=== PATIENT | female | born 1955 | race Caucasian/White ===

== ENCOUNTER → 2017-07-17 | Outpatient (CLI) | payer OTHER | LOC: RAD 02:18 | DX: Z12.31 Encounter for screening mammogram for malignant neoplasm of breast (principal) ==

== ENCOUNTER → 2018-08-05 | Outpatient (CLI) | payer OTHER | LOC: RAD 01:09 | DX: Z12.31 Encounter for screening mammogram for malignant neoplasm of breast (principal) ==

== ENCOUNTER → 2019-08-29 | Outpatient (CLI) | payer OTHER | LOC: RAD 08:34 | DX: Z12.31 Encounter for screening mammogram for malignant neoplasm of breast (principal) ==

== ENCOUNTER → 2019-08-31 | Outpatient (CLI) | payer OTHER | LOC: RAD 12:20 | DX: R92.1 Mammographic calcification found on diagnostic imaging of breast (principal) ==

== ENCOUNTER → 2019-09-02 | Outpatient (CLI) | payer OTHER ==
--- NOTE | 2019-09-08 13:08 | PATH ---
[facility] [place] [address] PATHOLOGY RPT PROCEDURE Name: MEAGHAN BATEMAN Room #: REG [facility] M.R.#: [id number] Admission: 09/02/19 Date of : 59 Discharge: Report #: [id number] Path Case #: [id number] LCA Accession Number: [id number] . 01 Material submitted: . breast - RIGHT ANTERIOR MEDIAL BREAST CALCIFICATIONS. Modifiers: right, anterior, medial . 01 Clinical history: . Right breast calcifications . 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 (IUV:managing cognitive engineer; 09/05/2019) MBR 09/05/2019 1326 Local . 02 Comment: ER and OK are ordered on block A1 and the results of this will be reported in an addendum to follow. . Dr.Joanne Shereen Marx has seen a operations support representative slide and concurs with my diagnosis. . Findings of this case are telephoned to miss Huang in our breast center at 11:05 a.m. on 09/05/2019. . (IUV:managing cognitive engineer; 09/05/2019) . 02 Addendum: . Special studies report received from [facility], [address] [place] [address], [address], [place], [address], on case [id number], labeled with their number [id number], dated 09/07/2019. . Breast/Prognostic Marker Analysis . Specimen Site: Right Breast, Anterior Medial (Biopsy), Ductal Carcinoma In Situ Specimen ID #: [id number] . ER (Estrogen Receptor) Present/Positive Percent: 95.00% Analysis: Manual Comments: Staining Intensity: Strong. [address] [address] PATHOLOGY RPT PROCEDURE Name: MEAGHAN BATEMAN Room #: REG [facility].#: [id number] Admission: 09/02/19 Date of : 59 Discharge: Report #: [id number] Path Case #: [id number] . OK (Progesterone Receptor) Present/Positive Percent: 60.00% Analysis: Manual Comments: Staining Intensity: Moderate-strong. . Time to Fixation (Cold Ischemic Time): 2 minutes Duration of Fixation: 11 hours 3 minutes Type of Fixative: 10% Neutral Buffered Formalin . Comments: Prognostic groupings are reported only for invasive primary breast carcinomas. Please disregard the reference ranges to the right. . Whole slide image capture is performed using [employer] ([employer]) platform. Image analysis, if ordered, is performed using [email or web address] software. . at [facility] Rey Ribera M.D. Pathologist . . Methodology A rabbit monoclonal antibody (clone SP1) that recognized the Estrogen Receptor is used to perform immunohistochemistry on routinely fixed (formalin) paraffin embedded tissue on the Clarita Benchmark. The specimen is processed using a secondary antibody-HRP conjugate detection system. The percentage of stained tumor nuclei is determined either manually or by image analysis. This test is intended for in vitro diagnostic use. This test is used for clinical purposes. . A rabbit monoclonal antibody (clone 1E2) that recognized the Progesterone Receptor is used to perform immunohistochemistry on routinely fixed (formalin) paraffin embedded tissue on the Medium Benchmark. The specimen is processed using a secondary antibody-HRP conjugate detection system. The percentage of stained tumor nuclei is determined either manually or by image analysis. This test is intended for in vitro diagnostic use. This test is used for clinical purposes. . Intended Use: This antibody is intended for in vitro diagnostic (IVD) use. Estrogen Receptor (ER) (SP1) is a rabbit monoclonal antibody (IgG) that is intended for the qualitative detection of estrogen receptor (ER) antigen in sections of formalin-fixed, paraffin-embedded tissue. ER is a rabbit monoclonal antibody that recognizes human estrogen receptor alpha. [address] [address] PATHOLOGY RPT PROCEDURE Name: MEAGHAN BATEMAN Room #: REG [facility] M.R.#: [id number] Admission: 09/02/19 Date of : 59 Discharge: Report #: [id number] Path Case #: [id number] . This antibody is intended for in vitro diagnostic (IVD) use. Progesterone Receptor (OK) (1E2) is a rabbit monoclonal antibody (IgG) that is intended for the qualitative detection of progesterone receptor (OK) antigen in sections of formalin fixed, paraffin embedded tissue. OK is a rabbit monoclonal antibody that recognizes the A and B forms of the human progesterone receptor. . Disclaimer: This Test was performed by [facility]. at [address] [place] [address], [address]. . [facility] is a business unit of [facility]. a wholly-owned subsidiary of [employer]. . This assay has not been validated on decalcified tissues. Results should be interpreted with caution if this specimen was decalcified given the likelihood of false negativity on decalcified specimens. . Any image(s) that accompany this report is/are a operations support representative image(s) only and should not be used to render a diagnosis. . This interpretation is contingent on the specimen and the clinical information received. . For any special tests/stains performed, known positive cells or tissues are tested with each marker and examined to ensure positivity. Positive and negative internal controls, if present, react appropriately. . This analysis is an adjunct to the evaluation of the referring physician and does not represent a final diagnosis. . The immunohistochemistry tests performed at [facility]. were validated on tissue fixed in 10% neutral buffered formalin. The performance characteristics of the tests performed on tissue processed in other fixatives is not known. . ER/OK ASCO/CAP guidelines require fixation in neutral buffered formalin for a minimum of 6 and a maximum of 72 hours. Fixation times less than 6 hours may not adequately preserve cell proteins. Fixation times longer than 72 hours may cause excess cross-linking of proteins reducing the antigen available for staining. Either scenario can cause reduced staining; hence false negative results are possible and should be considered for these situations. The time from biopsy/excision to fixation in formalin (cold ischemic time) must be less than 1 hour. Time to fixation (cold ischemic time) greater than 1 hour should be interpreted with caution. REF: Brandie Morris, et al. [place] [employer] of Clinical [address] [address] PATHOLOGY RPT PROCEDURE Name: MEAGHAN BATEMAN [facility] [id number] Admission: 09/02/19 Date of : 59 Discharge: Report #: [id number] Path Case #: [id number] Oncology/[employer] of [place] Guideline Recommendations for Immunohistochemical Testing of Estrogen and Progesterone Receptors in Breast Cancer. J Clin Oncol. 2009November 20; 28(16): 5846-6747. . A complete copy of the report is on file. . Professional and Technical services performed by [facility]. at [address] [place] [address]. . (IUV:amj 09/07/2019) . AZJ/09/07/2019 Addendum Electronically Signed by Eden Dumont MD, Pathologist . 02 Electronically signed: . Eden Dumont MD, Pathologist NPI- [id number] . 01 Gross description: . The specimen is received in formalin, labeled "Meaghan Bateman". No source is listed on the container. The source is listed on the requisition as, "right anterior medial". Received are multiple needle cores of fibrofatty tissue measuring 4.2 x 3.2 x 0.8 cm in aggregate dimensions. Also received within the specimen containers a plastic cassette containing two needle cores of fibrofatty tissue measuring 2.5 x 1.2 x 0.4 cm in aggregate dimensions. The suspect tissue is transferred to cassette A1, with the remainder of the specimen submitted in cassettes A2 and A3. The cold ischemic time is 2 minutes. The total formalin fixation time is 11 hours and 3 minutes. (CAA; 09/02/2019) QAC/QAC 09/02/2019 1650 Local . 02 Pathologist provided ICD-10: D05.11 . 02 CPT . 738407 Specimen Comment: A courtesy copy of this report has been sent to [phone] Specimen Comment: [phone] Specimen Comment: Report sent to / DR CRAWFORD Performed at: 01 [facility] [address] [id number] MD Hansel Powers MD Phone: [phone] Performed at: [address] [id number] [address] [address] PATHOLOGY RPT PROCEDURE Name: MEAGHAN BATEMAN Room #: REG [facility]..#: [id number] Admission: 09/02/19 Date of : 59 Discharge: Report #: [id number] Path Case #: [id number] MD Eden Dumont [place] Phone: [phone]
== END ==
LOC: BC 09:39
DX: R92.0 Mammographic microcalcification found on diagnostic imaging of breast (principal); D05.11 Intraductal carcinoma in situ of right breast

== ENCOUNTER → 2019-09-23 | Outpatient (CLI) | payer OTHER ==
[2019-09-23 10:13] LABS: CREATININE 0.7 mg/dL (0.6-1.0)
== END ==
LOC: MRI 09:19
PROVIDERS: Specialist
DX: D05.11 Intraductal carcinoma in situ of right breast (principal); R92.2 Inconclusive mammogram

== ENCOUNTER → 2019-10-04 | Outpatient (CLI) | payer OTHER ==
--- NOTE | 2019-10-10 14:07 | PATH ---
[facility] [place] [address] PATHOLOGY RPT PROCEDURE Name: MEAGHAN BATEMAN Room #: REG [facility] M..#: [id number] Admission: 10/04/19 Date of : 59 Discharge: Report #: [id number] Path Case #: [id number] LCA Accession Number: [id number] . 01 Material submitted: . PART A: lymph node - RIGHT AXILLARY NODE, SUPERIOR. Modifiers: right, axillary tail, superior PART B: lymph node - RIGHT AXILLA NODE, INFERIOR LATERAL. Modifiers: right, inferior, lateral . 01 Clinical history: . 64-year-old female with a recent history (09/02/2019; [id number]) of stereotactic breast biopsy of a right anterior medial breast mass, which revealed DCIS, solid and cribriform patterns, intermediate grade nuclear features with coarse calcifications. Per Dr. Gurvinder Contreras, subsequent MRI of the right breast indicated 2 additional lesions in the lateral aspect of the right breast, which are biopsied under ultrasound guidance. . 02 Diagnosis: A. Breast "right-axillary tail superior lymph node", needle biopsy: -INVASIVE DUCTAL CARCINOMA INTERMEDIATE GRADE (GLANDLAR/TUBULAR DIFFERENTIATION - 2, NUCLEAR PLEOMORPHISM - 3, MITOTIC RATE - 1) TOTAL SCORE 6. - Microcalcification. - Negative for lymph node tissue. - Please see cancer outline below. . B. Breast "right inferior lateral axillary node", needle biopsy: - Fibrocystic changes including usual ductal hyperplasia, apocrine metaplasia, dense fibrosis. - Microcalcification. - Negative for lymph node tissue. - Negative for malignancy. . (CHA:ken; 10/07/2019) . . Surgical Pathology Cancer Case Summary . Procedure - Needle biopsy . Specimen Laterality - Right . Tumor Site - Upper outer quadrant . Tumor Size - Greatest dimension of largest invasive focus: 4 mm . Histologic Type - Invasive Ductal Carcinoma [facility] [address] [place] [address] PATHOLOGY RPT PROCEDURE Name: MEAGHAN BATEMAN Room #: REG [facility].#: [id number] Admission: 10/04/19 Date of : 59 Discharge: Report #: [id number] Path Case #: [id number] . Histologic Grade ([place] Histologic Score- Total Score 6/9) . Glandular/Tubular Differentiation - Score 2 (10% to 75% of tumor) . Nuclear Pleomorphism - Score 3 . Mitotic Rate - Score 1 . Overall Grade - Grade 2 (Total Score 6/9) . Ductal Carcinoma In Situ (DCIS) - Not identified . Lymphovascular Invasion- Not identified . Microcalcifications - Present in invasive carcinoma . Ancillary Studies - Pending, Addendum Report to Follow MBR 10/10/2019 1330 Local . 02 Comment: The case was seen in co-review with Dr. Rinku Macias who concurs with the above diagnosis. . Both needle core biopsies (specimen A and B) are submitted labeled "axillary lymph node." Breast tissue is noted in each specimen, however obvious lymph node tissue is not. Clinical correlation is suggested. . The results are discussed with Dr. Gurvinder Contreras via telephone the afternoon of 10/07/2019 at approximately 2:40. . (MLK:ken; 10/07/2019) . 02 Electronically signed: . Devonte Celestin MD, Pathologist NPI- [id number] . 01 Gross description: . A. The specimen is received in formalin, labeled "Meaghan Bateman, right axilla superior". The specimen is additionally labeled on the requisition as, "axillary node superior". Received is a single needle core of pale johnson to yellow-johnson lobulated tissue measuring three cm in length by 0.1 cm in diameter. The specimen is submitted entirely in cassette 1.2 x 0.8 x 0.2 A1 through A3. . B. The specimen is received in formalin, labeled "Meaghan Bateman, right axilla inferior lateral". Received are six needle cores of white-johnson to [address] [address] PATHOLOGY RPT PROCEDURE Name: MEAGHAN BATEMAN Room #: REG [facility]#: [id number] Admission: 10/04/19 Date of : 59 Discharge: Report #: [id number] Path Case #: [id number] yellow-johnson lobulated tissue ranging in length from 0.7 to 1.6 cm in length by 0.1 cm in diameter. The specimen is submitted entirely in cassette B1 through B3. (CAA; 10/04/2019) QAC/QAC 10/04/2019 1533 Local . 02 Pathologist provided ICD-10: C50.911, N60.11, N60.81, N60.31, R92.0 . 02 CPT . 274670, 754047 Specimen Comment: A courtesy copy of this report has been sent to [phone] Specimen Comment: Report sent to Performed at: 01 [facility] [address] [id number] MD Hansel Powers MD Phone: [phone] Performed at: 02 [facility] [address] [id number] MD Mayank Darden MD Phone: [phone]
== END | disposition home or self-care (01) ==
LOC: ULTRA 07:19
DX: C50.911 Malignant neoplasm of unspecified site of right female breast (principal); R92.1 Mammographic calcification found on diagnostic imaging of breast; N60.11 Diffuse cystic mastopathy of right breast; N60.81 Other benign mammary dysplasias of right breast

== ENCOUNTER → 2019-10-17 | Outpatient (CLI) | payer OTHER ==
[~2019-10-17] MED LIST: ALPRAZOLAM 0.0.25 M1 PO; ATORVASTATIN CA10 MG PO; CELEXA 20 MG TA20 MG PO; NORVASC5 MG PO; PROAIR HFA8.5 GM INH; SYMBICORT160 MCG/4. INH; VITAMIN D3250 MC1 PO
[2019-10-17 11:15] LABS: HEMATOCRIT 42.4 % (37.0-47.0); HEMOGLOBIN 14.2 gm/dL (12.0-15.0); MCH 32.2 pg (26.0-34.0); MCHC 33.5 g/dL (28.0-37.0); MCV 96.1 fL (80.0-100.0); RBC 4.42 mil/uL (4.20-5.00); RDW 12.2 % (10.5-14.5); WBC 5.2 thou/uL (4.0-11.0)
[2019-10-17 11:24] LABS: ALBUMIN 4.5 g/dL (3.4-5.0); CALCIUM 9.5 mg/dL (8.5-10.1); CREATININE 0.7 mg/dL (0.6-1.0); POTASSIUM 4.2 mmol/L (3.5-5.1); TOTAL BILIRUBIN 0.4 mg/dL (<0.1-1.0); TOTAL PROTEIN 7.8 g/dL (6.4-8.2)
== END ==
LOC: RAD 10:38
PROVIDERS: Specialist
DX: Z01.818 Encounter for other preprocedural examination (principal)

== ENCOUNTER 2019-10-19 08:23 | Observation (INO) | payer OTHER ==
[~2019-10-19] VITALS: Ht 160 cm; Wt 52.6 kg
--- NOTE | ~2019-10-19 | O ---
[facility] [place] [address] OPERATIVE REPORT Name: OSMEL BATEMAN Room #: 448-[facility] Ambreen MLena#: [id number] Admission: 10/19/19 Attend Phys: Gurvinder Contreras MD Discharge: 10/20/19 Date of : 59 Report #: [id number] THIS REPORT FOR: cc: NOEL CRAWFORD Physician not on staff Justin Mixon MD ~ CC: Justin Contreras MD Physician staff PREOPERATIVE DIAGNOSES: 1. Malignancy, right breast. 2. Acquired absence, bilateral breasts. POSTOPERATIVE DIAGNOSES: 1. Malignancy, right breast. 2. Acquired absence, bilateral breasts. PROCEDURE: 1. Bilateral tissue thread dresser reconstruction using Elysian Artoura ultra high profile textured expanders, catalog #[id number], each inflated to an additional 180 mL of saline total. 2. Use of AlloDerm regenerative tissue matrix for the reconstruction of breasts bilateral. 3. Use of the Tutee imaging system for evaluation of skin viability. SURGEON: Justin Mixon MD ANESTHESIA: General. ESTIMATED BLOOD LOSS: Minimal. DRAINS: X 2. COMPLICATIONS: None. Needle, sponge and instrument counts correct. INDICATION FOR PROCEDURE: The patient is a 64-year-old female who presents following a diagnosis of breast cancer. She presents now for bilateral mastectomy with immediate reconstruction, understanding the risks and complications of the procedure including bleeding, infection, scarring, skin loss, open wound complications, possible nipple loss, need for further surgery. DESCRIPTION OF PROCEDURE: The patient was taken to the operating room under [facility] [address] [place] [address] OPERATIVE REPORT Name: OSMEL BATEMAN Room #: 448-P [facility] Ambreen .R.#: [id number] Admission: 10/19/19 Attend Phys: Gurvinder Contreras MD Discharge: 10/20/19 Date of : 59 Report #: [id number] general after being marked in the holding area. Dr. Contreras began with the mastectomy on the right side, at which time upon completion of the right side procedure, I was called to the room and the device has previously prepared later mentioned. The pocket was copiously irrigated with antibiotic solution. The subpectoral pocket dissected in routine fashion. AlloDerm regenerative tissue matrix applied to the leading edge of the pectoralis muscle. The thread dresser was inserted after being partially inflated and secured with all three posterior tabs using 2-0 Vicryl suture. The AlloDerm was then used to recreate the medial, lateral and inferior borders of the breast with running 2-0 Vicryl sutures. This completed the skin closure, which was affected without difficulty with Insorb skin reinaldo and 3-0 Monocryl in the skin and interrupted 5-0 nylons. Just prior to complete a wound closure, a 19-Lao Tor drain was brought out through a lateral stab wound inferior and the On-Q pain pump catheter system was also inserted. The same procedure was carried out on the left side with the irrigation, placement of the AlloDerm, placement of the thread dresser and secured, and skin closure. The devices for On-Q pain pump and drain were also applied at this side at the same time. Upon completed wound closure, it was at this point that we assess the vascularity of the mastectomy flaps. We injected indocyanine green intravenously and placed the intraoperative handheld SPY Elite system over the breasts. Perfusion was noted immediate, further volume added without any compromise whatsoever the vascularity, at which time the procedure was terminated with the occlusive bulky dressings applied. The patient tolerated the procedure well and was taken to the recovery room in stable condition to be admitted for overnight observation and pain control. By: [id number] Justin Mixon MD /luca
[2019-10-19 08:55] VITALS: BP 159/83
[2019-10-19 17:50] VITALS: BP 145/89
[2019-10-19 19:23] VITALS: BP 149/78
[2019-10-19 23:44] VITALS: BP 135/79
[2019-10-20 03:10] VITALS: BP 143/83
[2019-10-20 07:32] VITALS: BP 147/46
--- NOTE | 2019-10-20 07:57 | EKG ---
[facility] [place] [address] [address] [place] [address] ELECTROCARDIOGRAM REPORT Name: OSMEL BATEMAN Room #: 448-[facility] M.R.#: [id number] Admission: 10/19/19 Attend Phys: Gurvinder Contreras MD Discharge: Date of : 59 Report #: [id number] THIS REPORT FOR: cc: NOEL CRAWFORD Physician not on staff Agustin Palomino MD [facility] THIS REPORT FOR: //name// [facility] Test Date: 2019-10-19 Test Time: 08:47:25 Pat Name: OSMEL BATEMAN Department: Room: [facility] Gender: F Chip Mucker: nato : 1955 Requested By: Gurvinder Contreras Order Number: [id number] MD: Agustin Palomino Measurements Intervals Turpin Rate: 87 P: 82 DE: 174 QRS: 42 QRSD: 87 T: 46 QT: 374 QTc: 450 Interpretive Statements Sinus rhythm Normal tracing No previous ECG available for comparison Electronically Signed On 10-20-2019 7:55:28 CDT by Agustin Palomino [email or web address] <ELECTRONICALLY SIGNED> By: Agustin Palomino MD, FAC 10/20/19 0755 Agustin Palomino MD, [facility] /EPI
[2019-10-20 10:32] VITALS: BP 147/46
--- NOTE | 2019-10-20 11:38 | O ---
[facility] [place] [address] OPERATIVE REPORT Name: OSMEL BATEMAN Room #: 448-P [facility] M.R.#: [id number] Admission: 10/19/19 Attend Phys: Gurvinder Contreras MD Discharge: Date of : 59 Report #: [id number] THIS REPORT FOR: cc: NOEL CRAWFORD Physician not on staff Gurvinder Contreras MD ~ CC: VIOLA Prasad Physician staff Leanne Tillman MD DATE OF SERVICE: 10/19/2019 PREOPERATIVE DIAGNOSES: Invasive ductal carcinoma, right breast, upper outer quadrant, plus ductal carcinoma in situ, right medial breast, previous biopsies plus increased risk on left. POSTOPERATIVE DIAGNOSES: Invasive ductal carcinoma, right breast, upper outer quadrant, plus ductal carcinoma in situ, right medial breast, previous biopsies plus increased risk on left. OPERATIONS PERFORMED: 1. Lymphatic mapping. 2. Right nipple-sparing mastectomy. 3. Right axillary sentinel lymph node biopsy. 4. Excision tissue inside right nipple for frozen section. 5. Left nipple-sparing mastectomy. 6. Excision tissue inside left nipple for frozen section. SURGEON: Dr. Gurvinder Contreras. CO-SURGEON: Dr. Justin Mixon. ANESTHESIA: General. DESCRIPTION OF PROCEDURE: The patient was taken to Nuclear Medicine and the radiologist injected technetium sulfur colloid into the right breast as per protocol. Lymphoscintigraphy demonstrated a single hot spot in the right axilla, which was marked by the radiologist. The patient was brought to the operating room for a general anesthetic. Dr. Mixon and I had already marked the patient for the appropriate anatomic landmarks for the mastectomies and reconstruction. Lymphatic mapping was performed using the gamma probe and we confirmed the presence of a right axillary hotspot with a 10-second count of 90. [address] [address] OPERATIVE REPORT Name: OSMEL BATEMAN Room #: 448-P [facility] M.R.#: [id number] Admission: 10/19/19 Attend Phys: Gurvinder Contreras MD Discharge: Date of : 59 Report #: [id number] Next, 5 mL of Lymphazurin blue dye were injected into the right breast, upper outer quadrant, around the invasive ductal carcinoma biopsy site using sterile technique with alcohol prep. Next, the abdomen, the chest, both breasts and both axillary regions were widely prepped with ChloraPrep solution. Sterile drapes were applied. Dr. Mixon and Samantha discussed incision options and we both felt that a lateral incision would give the best exposure for this patient given her breast size. A right nipple-sparing mastectomy incision was made lateral to the areola. Dissection was carried down through the skin and subcutaneous tissue. The skin flaps were developed using electrocautery and a right nipple-sparing mastectomy was thus performed, removing the entire breast together with the pectoralis fascia and the tail of Payton. Prior to removal of the breast, which was performed from medial to lateral in order to improve exposure in the axilla, I entered the axilla with care being taken to avoid injury to the neurovascular structures. We found a sentinel node, which was blue and radioactive which was excised, controlling the blood and lymphatic supply using Harmonic scalpel. The sentinel node had a 10-second count of 180 and it was blue as noted above. It was submitted as specimen #1. Palpation of the axilla revealed no other suspicious nodes. We could feel the biopsy site in the tail of Payton from one of the biopsy done by the radiologist and it was not radioactive. We did not think that it represented a node, but rather a second primary in the breast, upper outer quadrant. There were no other blue nodes to be found nor could we find any other radioactive nodes. The post-resection bed count was 9, which was well below 10% of the highest node. Next, the nipple-sparing mastectomy was completed as noted above. The specimen was marked with sutures for orientation purposes and then was given to the pathologist. Next, I excised the tissue inside the right nipple and this was sent for frozen section, which was negative for DCIS or malignancy according to the pathologist. The skin flaps appeared excellent. The sponge, instrument and needle counts were reported as correct. Antibiotic solution was irrigated and we chose Dr. Mixon's antibiotic solution for that. Hemostasis was carefully checked and was found to be excellent. Again, the skin flaps appeared excellent. Next, using new gloves and instruments, I proceeded with a left nipple-sparing mastectomy with a similar incision and a similar dissection. Palpation of the axilla revealed no suspicious lymph nodes. The entire breast was removed together with the pectoralis fascia and the tail of Payton while preserving all of the skin including the nipple. The specimen was marked with sutures for orientation purposes. Next, the tissue inside the left nipple was excised and submitted for frozen section, which was benign according to the pathologist. The skin flaps appeared excellent. The sponge, instrument and needle counts were reported as correct. The left mastectomy was irrigated with Dr. Mixon's antibiotic solution. At this point, I scrubbed out and then Dr. Mixon completed his reconstruction, which will be dictated separately by him. It should be noted that he started the right reconstruction while I proceeded with the left mastectomy in order to minimize time under anesthesia for the patient. [facility] [address] [place] [place] [address] OPERATIVE REPORT Name: OSMEL BATEMAN Room #: 448-P [facility] Ambreen M.RJuan#: [id number] Admission: 10/19/19 Attend Phys: Gurvinder Contreras MD Discharge: Date of : 59 Report #: [id number] Estimated blood loss for the mastectomy portion of the operation was less than 50 mL. <ELECTRONICALLY SIGNED> By: Gurvinder Contreras MD 10/20/19 1138 1429 1452 Gurvinder Contreras MD /nt
--- NOTE | 2019-10-24 13:08 | PATH ---
[facility] [place] [address] PATHOLOGY RPT PROCEDURE Name: MEAGHAN BATEMAN Room #: 448-P [facility] Ambreen M.R.#: [id number] Admission: 10/19/19 Date of : 59 Discharge: 10/20/19 Report #: [id number] Path Case #: [id number] [facility] Accession Number: [id number] . 01 Material submitted: . PART A: lymph node - RIGHT AXILLARY SENTINEL LYMPH NODE #1. Modifiers: right PART B: breast - RIGHT NIPPLE SPARING MASECTOMY. Modifiers: right PART C: nipple - TISSUE INSIDE RIGHT NIPPLE FS. Modifiers: right PART D: breast - LEFT NIPPLE SPARING MASTECTOMY. Modifiers: left PART E: nipple - TISSUE INSIDE LEFT NIPPLE FS. Modifiers: left . 01 Clinician provided ICD-10: C50.4 . 01 Clinical history: . Right anterior medial breast calcifications diagnosed as ductal carcinoma in situ in August 2019, subsequent needle core biopsies of "right axillary tail superior lymph node and right inferior lateral axillary node performed and the "right axillary tail superior lymph node" tissue showed invasive ductal carcinoma with no lymph node tissue. Patient undergoing nipple sparing mastectomy. . 02 Frozen section diagnosis: . FROZEN SECTION DIAGNOSES (Eden Dumont MD) . FSC1, tissue inside right nipple, biopsy: - Nipple ducts; no definite invasive carcinoma or in situ identified on FS slide. . FSE1, tissue inside left nipple, biopsy: - Benign nipple ducts, no definite in situ carcinoma or invasive carcinoma seen/identified on FS slide. . These findings are discussed with Dr. Gurvinder Contreras in OR2 at [facility] and a written report is placed in the patient's chart. . Frozen section performed at [facility], [address] [place] [address]. . . GROSS DESCRIPTION C. Specimen is received fresh from the OR labeled with the patient's name, Meaghan Bateman, and "tissue inside right nipple", consists of a red-johsnon fragment of tissue measuring 0.4 cm in greatest dimension, entirely submitted for frozen section as FSC1, this is subsequently submitted for permanent sections as C1. . [facility] [place] [address] PATHOLOGY RPT PROCEDURE Name: MEAGHAN BATEMAN Room #: 448-P [facility] Ellie#: [id number] Admission: 10/19/19 Date of : 59 Discharge: 10/20/19 Report #: [id number] Path Case #: [id number] E. Specimen is received fresh from the OR labeled with the patient's name, and "tissue inside left nipple", consists of a red-johnson fragment of tissue measuring 0.7 cm in greatest dimension. Submitted entirely for frozen section as FSE1, subsequently submitted for permanent sections as E1. (IUV:rachid; 10/19/2019) IZ/QMS . 02 Diagnosis: A. Tissue designated as, "right axillary sentinel lymph node #1", biopsy: - Benign breast tissue with non-proliferative fibrocystic changes. - No lymphoid tissue present. . B. Breast, right, nipple sparing mastectomy: - TWO SEPARATE FOCI OF INVASIVE DUCTAL CARCINOMA IDENTIFIED, MEASURING 0.6 MM AND 0.7 MM, RESPECTIVELY. - INVASIVE MODERATELY-DIFFERENTIATED DUCAL ADENOCARCINOMA, CONCETTA GRADE II IDENTIFIED IN BOTH FOCI. - BACKGROUND OF DUCTAL CARCINOMA IN-SITU, SOLID AND COMEDO TYPE. - Margins of resection free of invasive malignancy; closest deep margin is 5 mm away (lesion #3). - DUCTAL CARCINOMA IN SITU IS LESS THAN 1 MM AWAY FROM DEEP MARGIN. - No residual ductal carcinoma in situ identified at the anterior/medial biopsy site. - One reactive lymph node identified showing reactive changes; negative for metastatic carcinoma (0/1). . C. Tissue inside right nipple, biopsy: - Benign nipple duct. - Negative for ductal carcinoma in situ or invasive carcinoma. . D. Breast, left breast, nipple sparing mastectomy: - ATYPICAL LOBULAR HYPERPLASIA ALONG WITH LOBULAR CARCINOMA IN SITU IDENTIFIED IN UPPER INNER AND UPPER OUTER QUADRANTS OF BREAST (See comment). - Margins of resection free of malignancy; closest deep margin is 2 mm away and closest anterior margin is 9 mm away. . E. Tissue inside left nipple, biopsy: - Benign nipple duct. - Negative for ductal carcinoma in situ or invasive carcinoma. . (IUV:mml; 10/21/2019) . . . Surgical Pathology Cancer Case Summary . [address] [address] PATHOLOGY RPT PROCEDURE Name: MEAGHAN BATEMAN Room #: 448-P [facility] Ambreen M.R.#: [id number] Admission: 10/19/19 Date of : 59 Discharge: 10/20/19 Report #: [id number] Path Case #: [id number] Protocol posting date: June 2017 . INVASIVE CARCINOMA OF THE BREAST: . . Specimen Identification Procedure ___ Nipple sparing mastectomy . Specimen Laterality ___ Right . Tumor Site: Invasive Carcinoma ___ Position: Upper outer quadrant and Lower outer quadrant . Tumor Size ___ 0.6 mm and 0.7 mm . Histologic Type ___ Invasive ductal carcinoma . Histologic Grade (Concetta Histologic Score) ___ Concetta Grade II/III Glandular (Acinar)/Tubular Differentiation ___ Score 3 (<10% of tumor area forming glandular/tubular structures) Nuclear Pleomorphism ___ Score 2 (cells larger than normal with open vesicular nuclei, visible nucleoli, and moderate variability in both size and shape) Mitotic Rate ___ Score 1 (=3 mitoses per mm2) . Tumor Focality ___ Two separate foci . Ductal Carcinoma In Situ (DCIS) ___ Present ___ Negative for extensive intraductal component (EIC) Number of blocks with DCIS: 7 Number of blocks examined: 15 Architectural Patterns ___ Comedo and Solid types ___ Grade II (intermediate) to Grade III (high) . Tumor Extension Skin ___ Not examined/ Not applicable . [address] [address] PATHOLOGY RPT PROCEDURE Name: MEAGHAN BATEMAN Room #: 448-P [facility] Argueta#: [id number] Admission: 10/19/19 Date of : 59 Discharge: 10/20/19 Report #: [id number] Path Case #: [id number] ___ Not examined / Not applicable . Margins . Invasive Carcinoma Margins ___ Uninvolved by invasive carcinoma Distance from closest margin (millimeters): 5 mm Specify closest margin: posterior/deep . DCIS Margins ___ Uninvolved by invasive carcinoma Distance from closest margin (millimeters): less than 1 mm . Specify closest margin: posterior/deep . . Regional Lymph Nodes ___ Uninvolved by tumor cells Number of Lymph Nodes Examined: 1 Number of [place] Nodes Examined: 0 . Treatment Effect ___ No known presurgical therapy . Lymphovascular Invasion ___ Not identified . Pathologic Stage Classification (pTNM, AJCC 8th Edition) Note: Reporting of pT, pN, and (when applicable) pM categories is based on information available to the pathologist at the time the report is issued. . . TNM Descriptors ___ m (multiple foci of invasive carcinoma) . Primary Tumor (Invasive Carcinoma) (pT) ___ pT1b: Tumor >5 mm but =10 mm in greatest dimension . Category (pN) ___ pN0: No regional lymph node metastasis identified (one non-sentinel lymph node identified within axillary tail) . Distant Metastasis (pM) (required only if confirmed pathologically in this case) ___ pMX: Unknown [facility] 10/24/2019 1157 Local . 02 [facility] [address] [place] [address] PATHOLOGY RPT PROCEDURE Name: MEAGHAN BATEMAN Room #: 448-P [facility]#: [id number] Admission: 10/19/19 Date of : 59 Discharge: 10/20/19 Report #: [id number] Path Case #: [id number] Comment: Part B: Two separate foci of invasive carcinoma are identified within the right nipple sparing mastectomy specimen. Per the MRI report, there was no enhancement at the biopsy proven to be DCIS. There is no residual DCIS present within this focus on microscopic examination. The MRI right upper outer quadrant around 10:00 to 11:00 showed three separate masses of approximately 6-12 mm with enhancement. Two separate lesions are identified within this area, both measure 0.7 cm and 0.6 cm, respectively (designated as lesion 1 and lesion 3 in gross dictation). In addition, a lymph node is identified in close association with lesion 1 (in block 5). It shows no evidence of metastatic carcinoma. Findings of this case are discussed with Dr. Gurvinder Contreras at approximately 3:30 p.m. on 10/21/2019. . Part D: Properly-controlled immunohistochemical stains are performed on block D5. The lesion is non-reactive to E-cadherin, and shows reactivity with CK5/6 as well as AE1/AE3. Findings are consistent with lobular carcinoma in situ as well as atypical lobular hyperplasia. Additional properly-controlled immunohistochemical stains are performed on block D2 to exclude the possibility of an invasive carcinoma and the lesion shows intact myoepithelial cells with p63 and myosin heavy chain stains. These findings support in situ carcinoma and lack of invasive carcinoma. . (IUV:mml; 10/21/2019) . 02 Electronically signed: . Eden Dumont MD, Pathologist NPI- [id number] . 01 Gross description: . A. The specimen is received in formalin, labeled "Meaghan Bateman, right axillary sentinel lymph node #1, blue, count 80". Received is a segment of bright yellow lobulated tissue measuring 2.8 x 2.2 x 1.2 cm in greatest dimensions. Dissection and palpation of the specimen reveals bright yellow, lobulated cut surfaces with no grossly distinct lymphoid tissue. The specimen is bisected and entirely submitted in cassettes A1 and A2. Immunohistochemical stains are cancelled. . B. The specimen is received in formalin, labeled "Meaghan Bateman, right nipple sparing mastectomy, long suture oliva tail of Payton, short suture oliva tissue under right nipple". Received is a 255 g skin-sparing mastectomy specimen with a long suture designating the tail of Payton and a short suture designating prior nipple placement. The specimen measures 15.2 cm from medial to lateral, 13.1 cm from superior to inferior, and 3.5 cm from anterior to posterior. The specimen is inked as follows: Superior/anterior-blue, inferior/anterior-green, posterior-black, prior nipple placement-orange. The specimen is sectioned from medial to lateral aspects to show a well-circumscribed, white, firm mass measuring 1.0 x 1.0 x 0.7 cm, which is located between 9 - 10 clock, and is 0.[address] [place] [address] PATHOLOGY RPT PROCEDURE Name: MEAGHAN BATEMAN Room #: 448-P [facility] Argueta#: [id number] Admission: 10/19/19 Date of : 59 Discharge: 10/20/19 Report #: [id number] Path Case #: [id number] from the closest margin (posterior). This will further be designated as lesion 1. Within this mass, and extending out medially and inferiorly, there is a previous biopsy site, with white plastic biopsy markers, measuring 1.0 x 0.3 x 0.3 cm, which is 0.5 cm from the closest margin (inferior/anterior). 7.8 cm medial and superior to lesion 1, there is a second previous biopsy site measuring 0.4 x 0.4 x 0.4 cm, which is located along the junction between the upper inner and lower inner quadrant, and 0.5 cm from the closest margin (inferior/anterior). This will further be designated as lesion 2. Surrounding this biopsy site, there is a pale johnson, denser appearing possible mass measuring 1.8 x 1.0 x 0.9 cm, which grossly approaches the inferior/anterior margin. This previous biopsy site and mass is also located approximately 1.5 cm medial to the sutured area designating prior nipple placement. 0.7 cm medial to lesion 1, a third mass is identified upon random sectioning measuring 0.5 cm, which is located in the lower outer quadrant, and 0.6 cm from the closest margin (posterior). This will further be designated as lesion 3. The remainder the specimen displays bright yellow fibrofatty cut surfaces throughout, with the fibrous tissue encompassing approximately 25% of the specimen, as well as a moderate amount of residual blue dye identified. Extensive sectioning through the tail of Payton reveals no readily identifiable lymph nodes. The specimen is submitted representatively as follows: . B1 perpendicular section through short-sutured area of prior nipple placement (orange ink) B2-B5 lesion 1 biopsy site with surrounding mass, submitted from lateral to medial aspects (submitted entirely) B6-B9 lesion 2 biopsy site with surrounding possible mass, submitted from lateral to medial aspects (submitted entirely) B10-B11 lesion 3 submitted entirely, bisected B12 upper outer quadrant B13 lower outer quadrant B14 lower inner quadrant B15 upper inner quadrant. . Gross photographs are taken. (CAA; 10/20/2019) . C. PLEASE SEE GROSS DESCRIPTION UNDER FROZEN SECTION . D. The specimen is received in formalin, labeled "Meaghan Bateman, left nipple sparing mastectomy, long suture oliva tail of Payton, short suture oliva tissue under left nipple". Received is a 263 g skin-sparing mastectomy specimen with a long suture designating the tail of Payton and a short suture designating prior nipple placement. The specimen measures 14.0 cm from superior to inferior, 13.2 cm from medial to lateral, and 4.5 cm from anterior to posterior. The specimen is inked as follows: Superior/anterior-blue, inferior/anterior-green, posterior-black, prior nipple placement-orange. Sectioning reveals bright yellow, lobulated to [address] [address] PATHOLOGY RPT PROCEDURE Name: MEAGHAN BATEMAN Room #: 448-P [facility] Ellie#: [id number] Admission: 10/19/19 Date of : 59 Discharge: 10/20/19 Report #: [id number] Path Case #: [id number] white, fibrous cut surfaces throughout, with the fibrous tissue encompassing approximately 30% of the specimen. Extensive sectioning and palpation of the specimen reveals no grossly distinct nodules or lesions. Extensive sectioning through the tail of Payton reveals no readily identifiable lymph nodes. The specimen is submitted representatively as follows: . D1 perpendicular section through short-sutured area of prior nipple placement (orange ink) D2 upper inner quadrant D3 lower inner quadrant D4 lower outer quadrant D5 upper outer quadrant D6 floor representative section from central aspect of specimen posterior to prior nipple placement. (CAA; 10/20/2019) . After initial microscopic examination, additional floor representative sections are submitted as follows: . D7-D8 upper inner quadrant, to include sections from both posterior and anterior margins D9-D10 upper outer quadrant, to include sections from both posterior and anterior margins. (CAA; 10/21/2019) . E. PLEASE SEE GROSS DESCRIPTION UNDER FROZEN SECTION QAC/QMS 10/21/2019 1703 Local . 02 Pathologist provided ICD-10: N60.11, D05.11, C50.911, N62, D05.02 . 02 CPT . 730247, 579326, 261888, 756747, 802336, 502020, 201789, M23485, L89402 Specimen Comment: A courtesy copy of this report has been sent to [phone] Specimen Comment: [phone], , Specimen Comment: Report sent to ,DR MARQUES,DR SARABIA / DR CRAWFORD Performed at: [address], [place], [place] [id number] MD Hansel Powers MD Phone: [phone] Performed at: [address] [id number] MD Eden Dumont MD Phone: [phone]
== END 2019-10-20 12:30 | disposition home or self-care (01) ==
LOC: OR 08:23 → 4S 18:16 → OR 18:17 → 4S 18:17
PROVIDERS: ADMIT Specialist
DX: C50.911 Malignant neoplasm of unspecified site of right female breast (principal)
CPT/HCPCS: 10102; 50010; 50101; 50386; 50403; 50648; 51061; 52190; 53040; 56524; 56525; 56526; 56527; 56805; 62110; 62900; 70005

== ENCOUNTER 2020-02-25 10:36 | Emergency (ER) | payer OTHER ==
[~2020-02-25] VITALS: Ht 160 cm; Wt 54.4 kg
[2020-02-25] MEDS ORDERED: DULOXETINE HCL60 MG PO (10:56)
[2020-02-25] MEDS ORDERED: ATIVAN1 M1 PO (13:04)
[2020-02-25 13:08] LABS: ABSOLUTE NEUTROPHILS 3.5 thou/uL (1.4-8.2); BASOPHILS 1.1 % (0.0-2.0); EOSINOPHILS 3.5 % (0.0-3.0); HEMATOCRIT 36.3 % (37.0-47.0); HEMOGLOBIN 12.4 gm/dL (12.0-15.0); LYMPHOCYTES 14.4 % (24.0-44.0); MCH 34.1 pg (26.0-34.0); MCHC 34.2 g/dL (28.0-37.0); MCV 99.6 fL (80.0-100.0); MONOCYTES 6.4 % (1.0-8.0); PLATELET COUNT 252 thou/uL (150-400); POLYS 74.6 % (36.0-66.0); RBC 3.65 mil/uL (4.20-5.00); RDW 15.2 % (10.5-14.5); WBC 4.7 thou/uL (4.0-11.0)
[2020-02-25 13:24] LABS: CALCIUM 8.9 mg/dL (8.5-10.1); CREATININE 0.5 mg/dL (0.6-1.0)
[2020-02-25 13:29] LABS: DIRECT BILIRUBIN 0.1 mg/dL (<0.1-0.2); TOTAL BILIRUBIN 0.5 mg/dL (0.2-1.0); TOTAL PROTEIN 7.3 g/dL (6.4-8.2)
[2020-02-25 13:31] LABS: URINE BILIRUBIN NEGATIVE (Negative); URINE BLOOD TRACE (Negative); URINE CLARITY CLEAR; URINE COLOR YELLOW; URINE GLUCOSE-RANDOM* NEGATIVE (Negative); URINE KETONES 1+ (Negative); URINE LEUKOCYTES-REFLEX NEGATIVE (Negative); URINE NITRITE-REFLEX NEGATIVE (Negative); URINE PROTEIN (DIPSTICK) NEGATIVE (Negative); URINE SPECIFIC GRAVITY 1.025 (1.005-1.035); URINE UROBILINOGEN 0.2 E.U./dl (0.2-1.0)
[2020-02-25 13:51] VITALS: BP 153/84
--- NOTE | 2020-02-26 11:45 | EKG ---
[facility] [place] [address] ELECTROCARDIOGRAM REPORT Name: OSMEL BATEMAN [id number] Admission: 02/25/20 Attend Phys: Discharge: 02/25/20 Date of : 59 Report #: [id number] THIS REPORT FOR: cc: NOEL CRAWFORD [facility] - Family physician unknown Agustin Palomino MD [facility] ~ THIS REPORT FOR: //name// [facility] ED Test Date: 2020-02-25 Test Time: 12:08:19 Pat Name: OSMEL BATEMAN Department: Room: Gender: F [employer]rate [employer]: : 1955 Requested By: Malka Heard Order Number: [id number] MD: Agustin Palomino Measurements Intervals [place] Rate: 89 P: 76 SC: 171 QRS: 15 QRSD: 89 T: 40 QT: 368 QTc: 448 Interpretive Statements Sinus rhythm Normal tracing Compared to ECG 10/19/2019 08:47:25 No significant changes Electronically Signed On 02-26-2020 11:45:20 CDT by Agustin Palomino [email or web address] <ELECTRONICALLY SIGNED> By: Agustin Palomino MD, [facility] 02/26/20 1145 1208 1208 Agustin Palomino MD, [facility] /EPI
--- NOTE | 2020-02-26 12:03 | HC ---
[facility] [place] [address] CONSULTATION Name: OSMEL BATEMAN Room #: DEP [facility].#: [id number] Admission: 02/25/20 Attend Phys: Discharge: 02/25/20 Date of : 59 Report #: [id number] THIS REPORT FOR: cc: NOEL CRAWFORD - Family physician unknown Collin Segura DO ~ CC: RUBI unknown NOEL Heard DATE OF SERVICE: 02/25/2020 PSYCHIATRIC EMERGENCY ROOM CONSULTATION ER ATTENDING: Malka Heard DO CONSULTING PSYCHIATRIST: Collin Segura DO REASON FOR CONSULTATION: Panic disorder, panic symptoms in the setting of the patient undergoing adjuvant treatment for breast cancer. HISTORY OF PRESENT ILLNESS: This is a 64-year-old female seen in the Emergency Room bed #5 here at [facility]. The patient presented early this morning with her , nice gentleman he is. The patient has had a difficult year on top of the issues going on with the coronavirus pandemic, she was diagnosed with breast cancer in August, had a double mastectomy, underwent chemotherapy. She completed chemotherapy with margins clear at the end of September. The patient was prescribed several medications with several switches. She has changed psychiatrist. She now sees Ms. Escalona as a psychiatric nurse practitioner and Ms. Longo as a psychotherapist. The patient has had liquefier panic symptoms for the last number of days. About 3 weeks ago, the patient went to [facility] ER seeking relief. She was admitted for 4 days and then switched to Cymbalta and Xanax for treatment with additional sleep medications of clonazepam and lorazepam. During the monitoring, she told she was experiencing serotonin syndrome. She is not so sure of anyways she ended up being changed to mirtazapine is an antidepressant right before she was prescribed the Cymbalta, so it has been of medication mess in the patient's eyes similarly in the psychiatrist's eyes. Prompting presentation today, she woke up, went to the ER feeling of nothing into her head. She said as she had no good chemicals in her brain. She describes a throbbing headache as well. She earlier reported feeling of not wanting to live, but denied intent or plan to harm herself. She also complained of abdominal pain, headache, nausea. She believes a panic attack. She woke up with today made this worse. PAST MEDICAL HISTORY: Right breast cancer, asthma, hypertension, [facility] [address] [place] [address] CONSULTATION Name: OSMEL BATEMAN [facility] [id number] Admission: 02/25/20 Attend Phys: Discharge: 02/25/20 Date of : 59 Report #: [id number] hyperlipidemia. PAST SURGICAL HISTORY: Bilateral mastectomy, colonoscopy, wisdom teeth extraction, tonsillectomy, adenoidectomy, 2 C-sections. MEDICATIONS: Duloxetine, she is taking 60 mg daily; alprazolam, she is taking 0.25 mg p.o. b.i.d. p.r.n. anxiety; amlodipine 5 mg p.o., atorvastatin 10 mg p.o. daily; vitamin D3 800 ____ p.o. in a.m.; taking Symbicort, which is budesonide/formoterol 1 puff inhaled p.r.n. for asthma; albuterol. ALLERGIES: SHE IS ALLERGIC TO MORPHINE. SOCIAL HISTORY: She smoked cigarettes in the past. Alcohol: Denies use of drinking. Denies recreational drug use. REVIEW OF SYSTEMS: From the Emergency Room physician's note: CONSTITUTIONAL: Denies fever, chills, malaise, unexplained weight change. EYES: Denies eye pain, visual change or discharge. HENT: Denies hearing changes, ear drainage, ear infections, ear pain, neck pain or neck stiffness. RESPIRATORY: Denies cough, shortness of breath, hemoptysis or respiratory distress. CARDIOVASCULAR: Denies chest pain with exertion or edema. GASTROINTESTINAL: Denies vomiting or diarrhea. GENITOURINARY: Denies frequency or dysuria. MUSCULOSKELETAL: Denies back pain, joint pain, muscle weakness or myalgias. SKIN: Denies rash. NEUROLOGIC: Denies weakness or loss of consciousness. PSYCHIATRIC: As above. Otherwise, 10-point review of systems negative. Weight 54.43 kilos in the ER. BMI 21.3. VITAL SIGNS: Blood pressure 151/90, pulse oximetry 97%, temperature 36.6, pulse 69, respirations 14. LABORATORY DATA: Today CBC: H and H 12.4 and 36.3, white count 4.7, platelets 252. Chemistry: Sodium 141, potassium 4.0, chloride 104, bicarbonate 27, anion gap 10, BUN 10, creatinine 0.5, estimated GFR 125, glucose 108, calcium 8.9, total bilirubin 0.5, direct bilirubin 0.1, AST 30, ALT 39, alkaline phosphatase 72, total protein 7.3, albumin 4.0. No imaging was done today, but she has mainly breast imaging done earlier this year here. PHYSICAL EXAMINATION: Lying propped upright on the ER gurney. Gait not tested. Wearing hospital gown. [facility] [address] [place] [address] CONSULTATION Name: OSMEL BATEMAN Room #: DEP [facility]#: [id number] Admission: 02/25/20 Attend Phys: Discharge: 02/25/20 Date of : 59 Report #: [id number] MENTAL STATUS EXAMINATION: This is a well-developed female appearing stated age. Attention fair. Concentration fair. Speech is normal in rate, volume and tone. THOUGHT PROCESS: Linear and goal oriented. Thought content focused on her symptoms. Some psychomotor agitation. No psychomotor retardation. Denied SI or HI. Some helplessness. Denied hopelessness. Denied auditory, visual, or tactile hallucinations. Memory not formally tested. Insight fair. Judgment fair. Fund of knowledge above average. FORMULATION: A 64-year-old female who presented to the ER for brief suicidal ideation versus reference this morning and panic symptoms. DIAGNOSES: At this time; mood disorder secondary to general medical condition, namely the breast cancer and sequela; probable panic disorder, number of medical problems including breast cancer and hypertension. RECOMMENDATIONS: The patient's current situation with antidepressants, several that have been started or stopped, sounds like she has been on duloxetine for 2-3 week period. She states she is taking 60 mg a day. I am unclear if she was started on that or titrated up. For purposes of the holiday weekend, I would advise against stopping the Cymbalta. What I would recommend is her being on scheduled lorazepam 1 mg at 3 and 9:00 p.m. She is too tired from that, she can reduce it to 0.5 mg that she should not have panic symptoms without appreciable rebound. She does have an appointment to see Ms. Escalona this coming Thursday on 02/27. I gave the patient a hospital shredded filler cutter operator number, so I can be contacted over the weekend, so again the lorazepam 1 mg 3 times a day scheduled. Continue duloxetine since she has taking it in the morning. I would say to go ahead and take it in the evening to see if that has a favorable impact. The patient does have a psychotherapist as well. Does have a lot of cancer survivor, kind of things to process, so psychotherapy should be continued. Time spent on this evaluation is 35-minute range. Thank you for allowing me to participate in this patient's care. If more serious symptoms present such as she is suicidal again, the patient should return to the Emergency Room, call 911. <ELECTRONICALLY SIGNED> By: Collin Segura DO 02/26/20 1203 1402 [id number] Collin Segura, /nt
== END 2020-02-25 13:53 | disposition home or self-care (01) ==
LOC: ER 10:36
PROVIDERS: Emergency Medicine
DX: F32.9 Major depressive disorder, single episode, unspecified (principal); I10 Essential (primary) hypertension; J45.909 Unspecified asthma, uncomplicated; E78.5 Hyperlipidemia, unspecified; Z79.899 Other long term (current) drug therapy; Z87.891 Personal history of nicotine dependence; Z88.5 Allergy status to narcotic agent

== ENCOUNTER 2020-02-28 03:03 | Inpatient (IN) | payer OTHER ==
[~2020-02-28] VITALS: Ht 160 cm; Wt 53.5 kg
--- NOTE | ~2020-02-28 | D ---
[facility] [place] [address] DISCHARGE SUMMARY Name: OSMEL BATEMAN Room #: [facility]#: [id number] Admission: 02/28/20 Attend Phys: Collin Segura DO Discharge: 03/06/20 Date of : 59 Report #: [id number] THIS REPORT FOR: cc: NOEL CRAWFORD Physician not on staff Collin Segura DO ~ THIS REPORT FOR: //name// CC: Collin CRAWFORD Physician staff DATE OF SERVICE: 03/06/2020 INPATIENT PSYCHIATRIC DISCHARGE SUMMARY ATTENDING PSYCHIATRIST: Collin Segura DO. SLING OPERATOR AT THE TIME OF DISCHARGE: Chance Tom MD DISCHARGE DIAGNOSES: Major depressive disorder, single episode, severe degree; panic disorder. Medical comorbidities are several including superficial blisters on lip requiring cream, cuts on bilateral volar aspects of the distal forearm requiring sutures, removal needs to be 03/09/2020. The patient was educated on hypertension, on home medication; hyperlipidemia, on home medication; breast cancer, status post bilateral mastectomy with chemotherapy. DISCHARGE PLAN: The patient is discharging to her home where she lives with her . The patient has help from several adult children including her daughter, Elli. The patient's diet is regular with Ensure Enlive three times a day for supplementation. Her BMI is little less than desired at 20.9. DISCHARGE MEDICATIONS: Fluoxetine 60 mg oral daily, trazodone 150 mg p.o. at 2200 hours daily, hydroxyzine 25 mg p.o. scheduled b.i.d. and 50 mg p.o. q. 6 hours p.r.n. for breakthrough anxiety. She should continue on amlodipine 5 mg p.o. daily for hypertension, atorvastatin 10 mg p.o. daily for hyperlipidemia. The patient was given crisis suicide hotline information. LABORATORY DATA THIS ADMISSION: Of note, CBC: Anemic, H and H is 11.3 and 33.6, white count 6.7, platelets 257. Chemistry: Sodium 140, potassium 3.9, chloride 103, bicarbonate 28, anion gap 9, BUN 12, creatinine 0.6, estimated GFR 101, glucose 126, calcium 8.7, total bilirubin 0.4, AST 32, ALT 34, alkaline phosphatase 61, total protein 6.7, albumin 3.7. Vitamin B12 of 3001. TSH of 2.339. Toxicology this admission positive for benzodiazepines. Negative salicylates, negative for acetaminophen. COVID-19 PCR serology was negative at [address] [address] DISCHARGE SUMMARY Name: OSMEL BATEMAN Room #: 522B[facility].#: [id number] Admission: 02/28/20 Attend Phys: Collin Segura DO Discharge: 03/06/20 Date of : 59 Report #: [id number] time of admission. REASON FOR ADMISSION: Back on the 02/28/2020 or so, a 64-year-old female brought ____ EMS. The patient was complaining of suicidal ideation. She came with her around 3:00 a.m., reporting lacerations to her wrists. The patient had been seen in prior week in an Emergency Room by myself ____ have been diverted. HOSPITAL COURSE: The patient was admitted to the Geriatric Psychiatry Unit. The patient had a relatively variable course where 1 better day and next day not as well. She reported a great degree of sleep impairment, which was different than what staff recorded at night. The patient was asked to advise staff if when they were doing room checks and she was not asleep, nonetheless, there was somewhat of a dichotomy about her sleep. I elected to keep her on duloxetine, started her on increased dose of trazodone for sleep and the scheduled and p.r.n. hydroxyzine for anxiety. She had come in taking benzodiazepines, Xanax and lorazepam. We did taper off this with her last given benzodiazepine this past 03/04/2020. I reviewed this as an unfavorable risk of misuse or overdose, so that was the main reason for the taper. Her insurance [employer] did request for discharge after 03/05/2020 as she was no longer suicidal or homicidal. The patient has a good deal of work to do with coping skills and dealing with sequelae of her breast cancer, having retiring from her previous work last fall and then discovering that she had cancer so forth. PHYSICAL EXAMINATION: VITAL SIGNS: On the day of discharge are as follows: Temperature 36.7, pulse 85, respirations 20, BP 131/74, not on oxygen, regular respiratory pattern. MUSCULOSKELETAL: Normal gait and station. Does wear a head covering for the effects of chemotherapy. MENTAL STATUS EXAMINATION: This is a well-developed, somewhat thin female appearing older than stated age. Attention fair. Concentration fair. Speech is normal in rate, volume and tone. Thought process linear and goal oriented. Thought content focused on concerns about feeling better, often requesting a different medication. The patient denied suicidal ideation or homicidal ideation. Some helplessness, no hopelessness. Denied auditory, visual or tactile hallucinations. Memory not formally tested. Insight limited. Judgment fair to limited. Fund of knowledge at least average range. PROGNOSIS: For this patient is fair and will depend on her following through with [facility], engaging in the IOP program and ____ outpatient psychotherapy; however, family is aware of her potential to self-harm and the patient is encouraged to return to the Emergency Room if she feels suicidal. If there are [facility] [address] [place] [address] DISCHARGE SUMMARY Name: LUCY BATEMANWesley SANTOSIA Room #: 522B[facility] M.R.#: [id number] Admission: 02/28/20 Attend Phys: Collin Segura DO Discharge: 03/06/20 Date of : 59 Report #: [id number] any weapons, they should be locked up, removed, so the patient could not access them during her period of recovery going forward. By: [id number] Collin Segura DO /nt
[~2020-02-28 03:03] MED LIST changes: +ATIVAN1 M1 PO; +DULOXETINE HCL60 MG PO
[2020-02-28 03:04] VITALS: BP 139/76
[2020-02-28 03:52] LABS: ABSOLUTE NEUTROPHILS 5.3 thou/uL (1.4-8.2); BASOPHILS 0.7 % (0.0-2.0); EOSINOPHILS 2.3 % (0.0-3.0); HEMATOCRIT 33.6 % (37.0-47.0); HEMOGLOBIN 11.3 gm/dL (12.0-15.0); LYMPHOCYTES 12.4 % (24.0-44.0); MCH 33.9 pg (26.0-34.0); MCHC 33.8 g/dL (28.0-37.0); MCV 100.3 fL (80.0-100.0); MONOCYTES 5.3 % (1.0-8.0); PLATELET COUNT 257 thou/uL (150-400); POLYS 79.3 % (36.0-66.0); RBC 3.35 mil/uL (4.20-5.00); RDW 14.9 % (10.5-14.5); WBC 6.7 thou/uL (4.0-11.0)
[2020-02-28 03:58] LABS: CALCIUM 8.7 mg/dL (8.5-10.1); CREATININE 0.6 mg/dL (0.6-1.0); POTASSIUM 3.9 mmol/L (3.5-5.1)
[2020-02-28 04:03] LABS: ALBUMIN 3.7 g/dL (3.4-5.0); TOTAL BILIRUBIN 0.4 mg/dL (0.2-1.0); TOTAL PROTEIN 6.7 g/dL (6.4-8.2)
[2020-02-28 04:03] LABS: AMP/METHAMP Negative (Negative); BARBITURATES Negative (Negative); BENZODIAZEPINES POSITIVE (Negative); COCAINE Negative (Negative); METHADONE Negative (Negative); OPIATES Negative (Negative); PCP Negative (Negative)
--- NOTE | 2020-02-28 07:11 | NUR ---
PT SAT UP ON THE SIDE OF THE BED WHILE THIS NURSE WAS IN THE ROOM, PT WAS TEARFUL AND STATED "I JUST WANT TO WAKE UP AGAIN AND HAVE THIS ALL BE DIFFERENT". SPOUSE WAS ABLE TO CONSOLE PT.
--- NOTE | 2020-02-28 08:34 | EKG ---
[facility] [place] [address] ELECTROCARDIOGRAM REPORT Name: OSMEL BATEMAN Room #: REG [facility]#: [id number] Admission: 02/28/20 Attend Phys: Discharge: Date of : 59 Report #: [id number] THIS REPORT FOR: cc: NOEL CRAWFORD Physician not on staff Agustin Palomino MD [facility] ~ THIS REPORT FOR: //name// [facility] ED Test Date: 2020-02-28 Test Time: 03:50:34 Pat Name: OSMEL BATEMAN Department: Room: Gender: F Meal Attendant: : 1955 Requested By: Fito Bhatti Order Number: [id number] MD: Agustin Palomino Measurements Intervals [place] Rate: 74 P: 78 WI: 169 QRS: 33 QRSD: 89 T: 50 QT: 393 QTc: 436 Interpretive Statements Sinus rhythm Normal tracing Compared to ECG 02/25/2020 12:08:19 No significant changes Electronically Signed On 02-28-2020 8:34:32 CDT by Agustin Palomino [email or web address] <ELECTRONICALLY SIGNED> By: Agustin Palomino MD, [facility] 02/28/2034 9 Agustin Palomino MD, [facility] /EPI
[2020-02-28 14:30] VITALS: BP 151/95
--- NOTE | 2020-02-28 14:30 | NUR ---
PT ARRIEVED VIA W/C FROM ER. PT ATTEMPTED TO CUT WRIST THIS AM. PT VISITED THE ER FOR ANXIETY AND TROUBLE SLEEPING. PT WAS SUPPOSED TO FOLLOW UP WITH DR. AURORA AKERS TODAY. PT STATED SHE DIDN'T WANT TO GO. ASKED PT WHAT HAPPENED FROM THIS WEEKEND TO TODAY. SHE SAID THAT SHE WAS DEPRESSED AND HAS BEEN ANXIETY FOR MONTHS SINCE SHE HAD BILATERAL MASTECTOMY IN SEPTEMBER THIS YEAR, SHE FINISHED CHEMO. PT STATED SHE DIDN'T WANT ANYONE TO SEE HER WRIST, THEY ARE WRAPPED IN [place] AT THIS TIME. PT STATED SHE HAS SOME PAIN TO WRIST. PT STATED SHE FINISHED CHEMO 4 WEEKS AGO. PT STATED SHE HAS AN AUNT THAT TOOK OD OF MED WITH SUCCESS AND HER LOSES ARE HER BREAST FROM SURGERY. PT UP AD JHOANA WITH STEADY GAIT. PT STATED SHE LOST SOME WT ABOUT 9 PDS SINCE CHEMO AND LOW APPETITE. WILL CONT. TO MONITOR.
[2020-02-28 14:32] VITALS: BP 148/89
--- NOTE | 2020-02-28 17:24 | NUR ---
PT HAS BEEN SITTING WITH HER ROOMMATE AT DINING ROOM TABLE. PT SEEMS LESS ANXIOUS.
--- NOTE | 2020-02-28 17:48 | NUR ---
PT CAME TO THIS CONTRACT CONSULTANT IN DINING ROOM AND ASKING FOR ANXIETY MED AGAIN. TALKED TO DR. Moran FOR ORDERS.
--- NOTE | 2020-02-28 18:06 | NUR ---
ADM LORAZEPAM 1MG PO FOR ANXIETY.
[2020-02-28 19:37] VITALS: BP 137/85
--- NOTE | 2020-02-29 03:51 | NUR ---
patient rated both anxiety and depression 8 to the scale of 0-10, 10 being the worst. patient has cuts on both wrist, pictures taken and filed in the chart, patient has several stitches, minimum drainage no s/s of infection noted. both cuts cleansed with ns, topical cram applied per dr. order and covered. . prn ativan given per dr. order. patient denied pain or discomfort. patient sleep is poor. patient appetite is poor. patient encouraged fluids. patient had a flat affect, poor eye contact, fair grooming and hygiene. patient encouraged fluids. patient in bed asleep at this time breathing regular and unlaboured.
[2020-02-29 07:29] VITALS: BP 153/73
--- NOTE | 2020-02-29 14:07 | NUR ---
PATIENT WAS IN ROOM AWAKE WHEN CARE ASSUMED. PATIENT IS ALERT, AND ORIENTED X 3-4, ABLE TO VOICE NEED. PATIENT TOOK ALL MEDICATIONS WHOLE WITHOUT DIFFICULTY. PATIENT IS EATING MEALS, AND DRINKING FLUID WELL. PATIENT DENIES SUICIDAL/HOMICIDAL IDEATION. SHE RATED DEPRESSION 6/10, ANXIETY 7/10. PATIENT DENIES HAVING PHYSICAL PAIN. PATIENT IS VERY REMORSEFUL ABOUT HER ACTIONS, "I AM SO ASHAMED", WORRIED ABOUT THE SCAR THAT WILL BE NOTED TO HER KIRBY WRISTS. PATIENT TOOK SHOWER THIS MORNING, DRESSING TO KIRBY WRIST CUTS CHANGED, RIGHT WRIST WITH NO DRAINAGE, LEFT WRIST CUT WITH SMALL AMOUNT OF DRAINAGE, SUTURES IN PLACE, NO SIGN OF INFECTION NOTED. PATIENT PARTICIPATING IN GROUP THERAPY, NO SIGN OF ACUTE DISTRESS NOTED AT THIS TIME, WILL MONITOR FOR SAFETY.
--- NOTE | 2020-02-29 15:00 | NUR ---
SW met with pt and provided some therapy as well as gathered psychosocial info. Pt's mother within the last year. She then retired in 08/2019 and was dx with breast cancer 2 days later. 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 Due to COVID that opportunity was taken from her also. Pt said she feels overwhelmed and also ashamed of attempting suicide. She is a devout Shinto, and also is experiencing shame because of her chela. She would like to attend [facility] IOP program once d/c. She also mentioned having Dr. Morgan as a psych doctor. She mentioned that she is cancer free now, and have spacers where her breast tissue was in preparation for a breast aug. She says her surgery is soon. TIM discussed case with Dr. Segura who said that initially he thought pt having Dr. Morgan for a psych doctor, but thinks she would be better served with a psych doctor in [facility] ask that is where she would like to attend IOP program. TIM contacted pt's Justin at the number pt provided of [phone]. No answer. TIM left ms.
[2020-02-29 19:03] VITALS: BP 112/79
--- NOTE | 2020-03-01 01:56 | NUR ---
PATIENT ISOLATIVE THIS SHIFT. PATIENT HAD MINIMUM ANXIETY AND DEPRESSION THIS SHIFT. PATIENT HAD A FLAT AFFECT, POOR EYE CONTACT, GOOD GROOMING AND HYGIENE. PATIENT ENCOURAGED FLUIDS. PATIENT DENIED PAIN OR DISCOMFORT. PATIENT HAS DRESSINGS ON BOTH WRIST, DRESSING ARE C/D/I. PATIENT IN BED ASLEEP AT THIS TIME BREATHING REGULAR AND UNLABOURED.
[2020-03-01 07:38] VITALS: BP 143/80
--- NOTE | 2020-03-01 09:17 | NUR ---
0700 ASSUMED CARE OF PATIENT, PATIENT IN BED AT THAT TIME. PATIENT OUT TO DAYROOM AROUND 0800 FOR BREAKFAST. PATIENT ATE SMALL AMOUNT OF MEAL. MEDICATIONS GIVEN WHOLE WITHOUT DIFFICULTY. NO C/O PAIN. PATIENT TO ROOM AND NOTED TO HAVE SOME ANXIETY. PATIENT STATES "AFTER TALKING TO THE GIRLS I BECAME MORE ANXIOUS". PATIENT GIVEN ATIVAN 1MG PO FOR ANXIETY. PATIENT BECOMES SAD AND TEARFUL WHEN TALKING ABOUT BEING ANXIOUS. PATIENT STATES "I JUST FEEL BAD ABOUT THIS". PATIENT STATES THIS INCIDENT IS THE FIRST TIME SHE HAS DONE THIS AND FEELS BAD. SHE MENTIONS HER FAMILY AND WHAT IT IS DOING TO THE. ENVIRONMENTAL SERVICES LEAD CALMS PATIENT DOWN AND ENCOURAGES PATIENT TO ATTEND GROUP A DISTRACTION TO HER THOUGHTS. PATIENT AGREES AND SITTING IN GROUP AT THIS TIME. WILL CONTINUE TO OBSERVE
--- NOTE | 2020-03-01 11:27 | NUR ---
1050 PATIENT TO NURSES STATION, ASKS STEELER TO COME TO HER ROOM. STEELER TO ROOM, PATIENT ASKS TO CHANGE DRESSING TO WRISTS BILATERAL. DRESSINGS REMOVED WITH MULTIPLE STITCHES NOTED TO WRISTS BILATERAL. MINIMAL DRAINAGE NOTED, CLEANSED SITES AND APPLIED GAUZE WITH COBAN BANDAGE. PATIENT TEARY EYED WHEN DISCUSSING THE INCIDENT THAT LEAD UP TO HER CUTTING WRISTS. PATIENT STATES "I WAS DEPRESSED AND UPSET THAT MY TOOK MY MEDICATION FROM ME, SO I DID THIS TO MYSELF". PATIENT STATES UNDERSTANDING OF CONTINUING OUTPATIENT THERAPY AFTER LEAVING HERE AND HAS A POSITIVE ATTITUDE IN REGARDS TO OUTPATIENT. PATIENT IS UPSET ABOUT FAMILY KNOWING WHAT SHE HAS DONE. PATIENT STATES "I RUINED THIER LIVES (REFFERING TO FAMILY). PATIENT OUT TO DAYROOM, SITTING WITH OTHERS AT THIS TIME.
--- NOTE | 2020-03-01 14:26 | NUR ---
TIM received a call from Justin Talbot. TIM returned his call. No answer. SW left [facility]. SW team will continue to follow pt during her stay on this unit.
--- NOTE | 2020-03-01 14:44 | NUR ---
PATIENT REQUESTS ANXIETY MEDICATION. PATIENT SITTING IN DAY ROOM TEARY EYED AND WANTING TO TALK TO SOMEONE. GAS TRUCK DRIVER SITS WITH PATIENT TO TALK AND PATIENT CONTINUES TO HAVE INCREASES ANXIETY. ANXIETY MEDICATION SCHEDULED Q8 PRN HRS, WILL CONTACT DR GARCIA FOR POSSIBLE ONE TIME ORDER. PATIENT HAVING DIFFICULTY FOR GETTING WHAT SHE DID TO HERSELF. PATIENT GETS EMOTIONAL WHEN TALKING ABOUT THIS SITUATION. GAS TRUCK DRIVER ASKS ABOUT HER DEPRESSION AND WHEN IT STARTED. PATIENT TALKS ABOUT BEING DX OF BREAST CA AND HAVING CHEMO. PATIENT IS OPENLY DISCUSSING HER DX OF BREAST CA. PATIENT HAS CALMED DOWN AND HAPPY TO HAVE A MOMENT TO TALK WITH SOMEONE.
[2020-03-01 19:36] VITALS: BP 103/48
[2020-03-02 02:02] VITALS: BP 103/48
--- NOTE | 2020-03-02 04:34 | NUR ---
Assumed care on 03/01/20 @ 19:15, seated in the day room socializing with room mate and peers. A&Ox4 makes needs known, up ad jory, Mathis score 15. Reports is embarrased by SI attempt, embarrased for her adult children thinking poorly of her. Wearing long sleeves to cover wrist bandages. Dressing C/D/I. Tearful and regreating SI attempt. Denies feeling like SI now. Denies HI, AH/VH. Reports Chemo is complete and that she will be having breast mastectomy in 3 weeks. Scheduled ativan provided as scheduled. Tylenol 650 provided at 20:30 for 5/10 general pain. Trazadone 25 provided @ HS as a new order. Follow up assessment noted a 1/10 pain level. Provided Ibuprophen 600 and Trazadone 25 @ 22:15. Reports Anxiety level 5/10 adding that this has been a rough year with her mother's and cancer treatment. 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 HRRR, Lungs CTA, ABD N x 4Q had a BM 9/10, today. Sleeping tonight with eyes closed, respirations even and unlabored. Bed in low position. Will continue to monitor as per protocol for safety and comfort.
[2020-03-02 08:00] VITALS: BP 129/78
--- NOTE | 2020-03-02 09:01 | NUR ---
0700 ASSUMED CARE OF PATIENT, PATIENT IN BED AT THAT TIME. PATIENT OUT TO DAY ROOM AT 0745. PATIENT SITS WITH OTHERS COMMUNICATING WELL. 0810 MEDICATION TAKEN WHOLE WITHOUT DIFFICULTY. PATIENT ASKS FOR A DRESSING CHANGE, WILL CHANGE AFTER GROUP. NO C/O PAIN, PATIENT STATES SLEEPING WELL. PATIENT PRESENT IN GROUP AT THIS TIME.
--- NOTE | 2020-03-02 12:09 | NUR ---
TIM and Dr. Segura spoke with Justin Talbot who said that he wants Elli, pt's daughter, to be pt's point of contact because of his work schedule. He does not always have access to his phone. Dr. Segura explained that the pt has to consent to that. TIM spoke with pt who said that was ok. TIM contacted Elli at [phone]. Elli gave SW a contact with [facility] [place] (or [place]) at [phone]. TIM and Elli made a plan to talk after tx team on 03/05 to provide updates on discharge. TIM will also contact [facility] before d/c to discuss wrap around services. SW team will continue to follow pt during her stay on this unit.
--- NOTE | 2020-03-02 13:46 | NUR ---
AFTER BREAKFAST PATIENT SITTING IN CHAIR READING A BOOK. PATIENT IS CALM AND COOPERATIVE AT THAT TIME. PATIENT RECIEVES CALL FROM DAUGHTER AROUND 1010. AFTER PATIENT HANGS UP, PATIENT IS NOTED TO BE TEARY EYED AND RETURNS TO ROOM. PATIENT COMES OUT AND IS NOTED TO BE SAD. PODIATRIC SURGEON SITS WITH PATIENT TO DISCUSS HER PHONE CALL. PATIENT STATES BEING SAD DUE TO THE FACT THAT THE DAUGHTER HAS STEPPED UP TO HELP. PATIENT SAYS "IM HAPPY THAT MY DAUGHTER WANTS TO BE THE MAIN PERSON AND STEP UP AND TAKE CARE OF ME, (AT THIS TIME PATIENT IS CRYING) BUT AT THE SAME TIME IT MAKES ME SAD THAT I PUT HER I THIS POSITION". PATIENT DOES SAY CRYING IS GOOD AND I FEEL LIKE I NEED TO CRY AT TIMES. PODIATRIC SURGEON ENCOURAGED PATIENT TO BE POSITIVE AND ALLOW FAMILY TO HELP HER. PATIENT REQUESTS SOMETHING FOR INCREASED ANXIETY. ATIVAN 1MG GIVEN AT 1140. PATIENT ATTENDING GROUP AT THIS TIME.
[2020-03-02 19:54] VITALS: BP 111/72
[2020-03-02 22:45] VITALS: BP 111/72
--- NOTE | 2020-03-03 02:25 | NUR ---
Assumed care on 03/02/20 @ 19:15, Seated in the dayroom. Acknowledges staff and presents as A&Ox4 with a pleasant affect. Ate 100% of evening snack. Able to voice needs. Ambulates independently with a Mathis score of 15. Reports back pain an drequests Tylenol 650 for back pain of 5/10. Requests Lorazepam 1mg for anxiety and Trazadone 25 for insomnia. Reports that wants to try and only take the first Trazadone dose, and not take it again in one hour. Reports restless legs with sleep. Reports depression/anxiety, denies SI/HI today. AH/VH. Compliant with medication, read a book in bed, before going to sleep. Bed in low position. During Follow up assessment of Trazadone and Tylenol noted to be sleeping, with eyes closed, respirations even and unlabored.
--- NOTE | 2020-03-03 06:05 | NUR ---
slept 8 hours.
[2020-03-03 07:22] VITALS: BP 110/62
--- NOTE | 2020-03-03 09:45 | NUR ---
0700 ASSMED CARE OF PATIENT, PATIENT IN BED AT THAT TIME. PATIENT OUT TO DAYROOM FOR BREAKFAST AND SITS WITH OTHERS. PATIENT COMMUNICATES WELL WITH OTHERS. PATIENT ATE 70% OF MEAL. 0820 MEDICATION GIVEN WHOLE WITHOUT DIFFICULTY. AFTER BREAKFAST PATIENT SITS IN GERICHAIR TO READ A BOOK. PATIENT STATES "TODAY IS GOING TO BE A HARD ONE". PATIENT GETS SAD AND TEARY EYED. PATIENT COMTINUES TO STATE "IT IS JUST HARD TO MOVE FORWARD AND BE POSITIVE IN HERE. I NEED TO GET OUT TO BETTER DEAL WITH THIS WITH MY FAMILY". PATIENT IS CALM AND SAD. NO C/O PAIN, DENIES OTHER NEEDS AT THIS TIME.
[2020-03-03 20:14] VITALS: BP 123/66
--- NOTE | 2020-03-03 22:53 | H ---
[facility] [place] [address] HISTORY AND PHYSICAL Name: OSMEL BATEMAN Room #: 522B-B ADM IN M.R.#: [id number] Admission: 02/28/20 Attend Phys: Collin Segura DO Discharge: Date of : 59 Report #: [id number] THIS REPORT FOR: cc: NOEL CRAWFORD Physician not on staff Collin Segura DO ~ CC: Collin CRAWFORD Physician staff DATE OF SERVICE: 02/28/2020 INPATIENT PSYCHIATRIC EVALUATION Of note, I followed this patient as an Emergency Room consultation on 02/25/[address] Heard. SOURCES OF INFORMATION: The consultation, interview with the patient today, collateral from her . CHIEF COMPLAINT: "I need medication adjustment." HISTORY OF PRESENT ILLNESS: This is a 64-year-old female. The patient had presented in a holiday weekend with panic symptoms and such. The patient sees Ms. Escalona, who is a psychiatric nurse practitioner, sees a therapist by the name of the Qing. The patient had a difficult year with bilateral mastectomy for breast cancer and chemotherapy. Currently, the cancer is in remission. Sources of other stresses have been COVID-19 epidemic. The patient's presentation in the ER last night around 3:00 a.m. was brought by EMS stating she slit her wrist because she woke up this morning and realized what she had to do tomorrow and "could not do it." hid her medications from her, so she went into the bathroom and started to cut her wrist. When asked if she was trying to kill herself, the patient responds that "does not know if I was trying to kill myself." The patient is on medication for depression, but does not think the medication is working. She was hospitalized about 1 month ago at [facility]. Her oncologist thinks she needs a brain scan. She has breast cancer and received her last round of chemotherapy [address] was done in the ER, which was read as negative. She used the kitchen knife to cut her wrist. PAST MEDICAL HISTORY: Right breast cancer, asthma, hypertension, hyperlipidemia. PAST SURGICAL HISTORY: Bilateral mastectomy, x 2, tonsillectomy and adenoidectomy with the wisdom teeth extraction and colonoscopy. [address] [address] HISTORY AND PHYSICAL Name: OSMEL BTAEMAN Room #: 522B-B ADM IN M.R.#: [id number] Admission: 02/28/20 Attend Phys: Collin Segura, Discharge: Date of : 59 Report #: [id number] PSYCHIATRIC HISTORY: Anxiety, depression. MEDICATIONS: At home, she was given a prescription by Dr. Heard, which I had advised, for lorazepam 1 mg p.o. 3 times a day, sounded like she was taking them, but also took Xanax on top of it. She was drinking alcohol, which is known to be ill advised. She is taking duloxetine, I believe, it was 60 mg b.i.d.; alprazolam 0.5 mg p.o. b.i.d. p.r.n.; amlodipine 5 mg p.o. daily; atorvastatin 10 mg p.o. daily; cholecalciferol and vitamin D 800 mcg p.o. q.a.m.; Symbicort 1 puff inhaled p.r.n. for asthma; albuterol inhaler p.r.n. for asthma. She had previously been on citalopram. Interestingly, she has had over the last month or two numerous medication changes, including the mirtazapine trial. SOCIAL HISTORY: She has had cigarette use in the past. She uses alcohol, drinking 1-2 glasses of wine. REVIEW OF SYSTEMS: From ER: CONSTITUTIONAL: Denies fever or chills. EYES: Denies eye pain or visual change. HENT: Denies neck pain. RESPIRATORY: Denies cough or shortness of breath. CARDIOVASCULAR: Denies chest pain. GASTROINTESTINAL: Denies abdominal pain, nausea, vomiting or diarrhea. GENITOURINARY: Denies burning, frequency or dysuria. MUSCULOSKELETAL: Denies myalgias. SKIN: As above with the bilateral wrists. NEUROLOGIC: Denies weakness, headache or numbness. Otherwise, 10-point review of systems negative. Weight 54.43 kg, BMI 19.7. LABORATORY DATA: Hematology showed H and H of 11.3/33.6, white count 6.7 and platelet count 257. Chemistries: Sodium 140, potassium 3.9, chloride 103, bicarbonate 20, anion gap 9, BUN 12, creatinine 0.6, estimated GFR 101, glucose 126, calcium 8.7, total bilirubin 0.4, AST 32, ALT 34, alkaline phosphatase 61, total protein 6.7, albumin 3.7. TSH 2.339. Toxicology was grossly negative. Salicylate less than 2.8, acetaminophen less than 2. Alcohol interestingly was not measured. COVID-19 antigen and PCR were negative. NEUROIMAGING: Head CT was done to look at it myself and it was a normal CT scan. PHYSICAL EXAMINATION: VITAL SIGNS: Today are as follows: temperature 36.4, pulse 99, respirations 18, BP 137/85, O2 sat 97%. MUSCULOSKELETAL: Normal gait and station. Wearing head covering glasses. [facility] [address] [place] [address] HISTORY AND PHYSICAL Name: OSMEL BATEMAN Room #: 522B-B ADM IN M.R.#: [id number] Admission: 02/28/20 Attend Phys: Collin Segura DO Discharge: Date of : 59 Report #: [id number] MENTAL STATUS EXAMINATION: This is a well-developed, somewhat ill-appearing female appearing at least stated age. Attention limited. Concentration fair to limited. Speech is normal, rate, rhythm, tone. Thought process is linear and goal oriented. Thought content focused on getting her anxiety medication. No psychomotor retardation. Denied SI or HI. Denied auditory, visual or tactile hallucinations. Denied nightmares, flashbacks. Memory not formally tested. Insight limited. Judgment limited. Fund of knowledge at least average. ADDITIONAL INFORMATION: From my consultation this past weekend is as follows: Primary care provider is CARMEL Stephenson. Some additional background, the patient had before school panic symptoms prior to her fifth presentation about 3 weeks ago. She had the [facility] admission, admitted for 4 days, switched to Cymbalta and Xanax and was given clonazepam and lorazepam. She was told she may be experiencing serotonin syndrome. She was changed to mirtazapine right before she was changed to Cymbalta. It sounds like she had some headaches; complaints of abdominal pain, headache and nausea. I did not get her developmental work history. Her works in construction, I believe. I do not believe she is working at the moment. DIAGNOSES: Unspecified depressive disorder, panic disorder, history of hypertension, breast cancer, sounds like tobacco use disorder in remission. PLAN: Evaluate, stabilize, obtain collateral. With regards to her current medications, couple of comments, she is on atorvastatin 10 mg daily, amlodipine 5 mg p.o. daily. I think we will lower the duloxetine to 30 mg b.i.d., trazodone is ordered for sleep tonight, lorazepam is ordered 1 mg q. 6 hours p.r.n. for panic. I really do not want her getting any more Xanax. In addition, I think I forgot to reference electrocardiogram. Rate 74, W[place] interval 169, QT 293, QTc 436 milliseconds and sinus rhythm. So once again actually as I think about it, I am just going to give her 60 mg in the morning of duloxetine, so about 45 minutes spent on this case. STRENGTHS: He is insured , has support. WEAKNESSES: Dealing with a cancer issue, the epidemic issue, poor coping skills. ESTIMATED LENGTH OF STAY: 10-[address] [address] HISTORY AND PHYSICAL Name: OSMEL BATEMAN TALIB Room #: 522B-B ADM IN M.R.#: [id number] Admission: 02/28/20 Attend Phys: Collin Segura DO Discharge: Date of : 59 Report #: [id number] Evaluate, stabilize, obtain collateral, formulate a treatment plan. It would be great if she can go to [facility] program after inpatient. <ELECTRONICALLY SIGNED> By: Collin Segura DO 03/03/20 [id number] Collin Segura DO /nt
--- NOTE | 2020-03-04 05:35 | NUR ---
Assumed pt's care this pm shift. Pt was in her room at time of assessment. Pt was calm, anxious and depression. Pt asked for anxiety med. Prn hydroxyzine given for anxiety. Night med also given. Pt slept without issues. This morning, pt is laying in bed, voiced to nursing that she was "awake" all night. Pt became teary. Reassurance provided. PRN ativan given for anxiety per pt's request. Pt still laying down in bed. Stitches to bilat wrists from cuts intact. Will continue to monitor.
[2020-03-04 08:59] VITALS: BP 142/87
--- NOTE | 2020-03-04 10:29 | NUR ---
ASSUMED CARE FOR PATIENT AT 0700. UP IN THE DAYROOM. DENIES SI/HI AND AVH. PATIENT STATES SHE WANTS TO BE DISCHARGED. TEARFUL. COOPERATIVE WITH ASSESSMENT. EATING MEALS IN DAYROOM. TALKING ON THE TELEPHONE INTERMITTENTLY. LUNG SOUNDS CLEAR, ABDOMEN SOFT. DENIES PAIN OR DISCOMFORT. UP AND ABOUT AD JHOANA. GROOMING AND HYGIENE APPROPRIATE. ENSURED LAUDNRY WAS DONE.
[2020-03-04 19:36] VITALS: BP 125/81
--- NOTE | 2020-03-05 02:15 | NUR ---
ASSUMED PT CARE AROUND 1930. AXOX4. BILAT STICHES INTACT HEALING. NO BLEEDING OR OPENING NOTED. NO S/S ACUTE DISTRESS NOTED OR REPORTED AT THIS TIME. WILL CONT TO MONITOR FOR ANY CHANGES IN CONDITION.
[2020-03-05 07:30] VITALS: BP 147/85
[2020-03-05 07:36] VITALS: BP 147/85
--- NOTE | 2020-03-05 08:56 | NUR ---
PT CAME UP TO NURSING AND STATED SHE DIDN'T FEEL GOOD. PT STATED SHE HAS A FAMILY MEETING TODAY ABOUT GOING HOME TODAY. PT STATED SHE DIDN'T WANT TO DO OUTPATIENT EITHER, SHE STATED SHE WANTED TO GO HOME. PT STATED SHE DOESN'T BELONG HER. PT INCISIONS WAS WELL APPROXIMATED AND STICHES INTACT. NO SIGNS OF REDDNESS AND OPEN TO AIR.
--- NOTE | 2020-03-05 12:30 | NUR ---
PT ASKING FOR ANXIETY MEDICATION. TOLD PT THAT SHE HAS IT SCHEDUALED. PT STATED THANKS. PT STATED SHE HAS NOT GOT ENOUGH SLEEP FOR 3 NIGHTS.
--- NOTE | 2020-03-05 16:11 | NUR ---
Dr. Segura was notified by [facility] UR team that pt's last covered day for treatment is today. TIM and Dr. Segura met with pt. She initially said she is not ready to be d/c. She felt that she would not have the care she needs as her works 2-11 every day. TIM and Dr. Segura conferenced in pt's daughter Elli and Justin who said that they have arranged that pt will not be alone at all. Family members are taking turns to care for her. TIM and Elli arranged for a 1400 d/c on 03/06. TIM met with pt after group and created a Safety Plan for when she is overwhelmed as follows: 1. Read for 30 min.
[2020-03-05 19:32] VITALS: BP 124/79
[2020-03-05 22:34] VITALS: BP 124/79
--- NOTE | 2020-03-06 04:10 | NUR ---
Assumed care of patient this pm shift. Patient in her room during assessment. Patient appears to be withdrawln. Patient in good spirits, calm and cooperative. Patient denies hi/si. Patient is alert and oriented x3. Patient takes medications whole with thin fluids. Patient is not considered a falls risk. Patients affect is anxious. Patinets assessment shows no signs of acute distress. Patient states that she has not slept well in 3 days. Patient given trazadone for sleep. No new concerns at this time from patient. We will continue to monitor per hospital policy.
[2020-03-06 07:35] VITALS: BP 131/74
[2020-03-06 09:29] VITALS: BP 131/74
--- NOTE | 2020-03-06 09:34 | NUR ---
TIM created a SW Handout for pt, and a printed copy of her safety plan created yesterday. TIM gave pt a copy of both, and gave a copy to pt's nurse to include in her take home packet. SW team will continue to follow pt during her stay on this unit.
--- NOTE | 2020-03-06 09:35 | NUR ---
Assumed care 0700. Affect somber. Speaking slowly. Depressed mood. Says she is depressed. Does not belong to any social organizations. Out for self-fed breakfast and AM group. Is going home this AM yet is reluctant to leave. Denies SI/HI/AH/VH.
[2020-03-06] MEDS ORDERED: CYMBALTA60 MG PO (09:53)
[2020-03-06] MEDS ORDERED: TRAZODONE HCL50 MG PO (09:53)
[2020-03-06] MEDS ORDERED: HYDROXYZINE HCL25 M2 PO (09:54)
--- NOTE | 2020-03-06 10:26 | NUR ---
TIM D/C NOTE SW faxed pt's discharge docs including the SW handout and Safety Plan to both [facility]. No other needs for SW team to address at this time.
--- NOTE | 2020-03-06 11:59 | NUR ---
Patient discharged from the unit ambulatory with papers and belongings escorted by RN to at front entrance. RX's were called to pharmacy by Dr. Segura prior to her leaving. She verbalized understanding of meds and upcoming psychiatrist appointment. She left unit 1055 escorted by RN.
== END 2020-03-06 10:55 | disposition home or self-care (01) | DRG 881 ==
LOC: ER 03:03 → SBH 10:37 → EROBS 10:37 → SBH 14:33
PROVIDERS: Emergency Medicine; ADMIT Psychiatry & Neurology Psychiatry; ATTEND Psychiatry & Neurology Psychiatry
DX: F32.9 Major depressive disorder, single episode, unspecified (principal); E43 Unspecified severe protein-calorie malnutrition; T14.91XA Suicide attempt, initial encounter; Z20.828 Contact with and (suspected) exposure to other viral communicable diseases; F41.9 Anxiety disorder, unspecified; J45.909 Unspecified asthma, uncomplicated; I10 Essential (primary) hypertension; E78.5 Hyperlipidemia, unspecified; F41.0 Panic disorder [episodic paroxysmal anxiety]; G47.00 Insomnia, unspecified; D53.9 Nutritional anemia, unspecified; F43.21 Adjustment disorder with depressed mood; S00.521A Blister (nonthermal) of lip, initial encounter; S61.512A Laceration without foreign body of left wrist, initial encounter; S61.511A Laceration without foreign body of right wrist, initial encounter; Z88.6 Allergy status to analgesic agent; Z87.891 Personal history of nicotine dependence; X78.8XXA Intentional self-harm by other sharp object, initial encounter; Z85.3 Personal history of malignant neoplasm of breast; Y93.89 Activity, other specified; Y92.89 Other specified places as the place of occurrence of the external cause; Y99.8 Other external cause status; Z90.13 Acquired absence of bilateral breasts and nipples; Z92.21 Personal history of antineoplastic chemotherapy; Z68.20 Body mass index [BMI] 20.0-20.9, adult; Z23 Encounter for immunization; Z79.899 Other long term (current) drug therapy
CPT/HCPCS: 10880